=== PATIENT | male | born 1990 | race Caucasian/White ===

== ENCOUNTER 2023-05-20 18:40 | Emergency (ER) | payer BC ==
[2023-05-20 20:04] LABS: APPEARANCE,URINE CLEAR; BILIRUBIN,URINE NEGATIVE (NEGATIVE); COLOR,URINE YELLOW; GLUCOSE,URINE NEGATIVE (NEGATIVE); KETONES,URINE NEGATIVE (NEGATIVE); LEUKOCYTE ESTERASE,URINE NEGATIVE (NEGATIVE); NITRITE,URINE NEGATIVE (NEGATIVE); OCCULT BLOOD,URINE NEGATIVE (NEGATIVE); PROTEIN,URINE NEGATIVE (NEGATIVE); UROBILINOGEN,URINE 0.2 EU/dL (<2.0)
[2023-05-20 21:34] LABS: C. TRACHOMATIS BY PCR NOT DETECTED; N. GONORRHOEAE BY PCR NOT DETECTED
== END 2023-05-20 22:43 | disposition home or self-care (01) ==
LOC: MW.ED 18:40
DX: N45.2 Orchitis (principal)
CPT/HCPCS: 76870; 76870-26; 81003; 87491; 87591; 93976; 93976-26; 99283; 99284

== ENCOUNTER 2023-05-21 11:19 | Emergency (ER) | payer BC ==
[2023-05-21] MEDS ORDERED: cefTRIAXone 500 MG in Lidocaine 1% 1 ML IM ONE (11:34)
== END 2023-05-21 11:55 | disposition left against medical advice (07) ==
LOC: MW.ED 11:19
DX: Z53.21 Procedure and treatment not carried out due to patient leaving prior to being seen by health care provider (principal)
CPT/HCPCS: J0696; J3490